=== PATIENT | male | born 1985 ===

== ENCOUNTER → 2018-10-29 | Outpatient (CLI) | payer BC | END | disposition home or self-care (01) | LOC: LAB SHORT 19:01 → LAB EV 19:01 | DX: L02.91 Cutaneous abscess, unspecified (principal) | CPT/HCPCS: 87070; 87205 ==

== ENCOUNTER → 2018-10-30 | Outpatient (CLI) | payer BC | END | disposition home or self-care (01) | LOC: LAB EV 15:49 → LAB SHORT 15:49 | DX: L02.91 Cutaneous abscess, unspecified (principal) | CPT/HCPCS: 87070; 87075; 87077; 87147; 87186; 87205 ==